=== PATIENT | male | born 1990 | race Caucasian/White ===

== ENCOUNTER 2017-05-25 10:53 | Emergency (ER) | payer MEDICAID ==
[2017-05-25] MEDS: MORPHINE SULFATE 4 MG/ML DISP.SYRIN. IM ×2 (14:24)
[2017-05-25] MEDS: CLINDAMYCIN HCL 150 MG CAPSULE. PO ×2 (14:24)
[2017-05-25 14:37] LABS: ADD MAN DIFF? NO
[2017-05-25 14:40] LABS: BASO % 1 % (0-3); EOS # 0.1 x10^3/uL (0.0-0.7); EOS % 2 % (0-3); HEMOGLOBIN 12.8 g/dL (13.0-17.5); LYMPH # 1.5 x10^3/uL (1.0-4.8); LYMPH % 32 % (24-48); MEAN CORPUSCULAR HEMOGLOBIN 33 pg (25-35); MEAN CORPUSCULAR HGB CONC 35 g/dL (31-37); MEAN CORPUSCULAR VOLUME 96 fL (79-100); MONO # 0.7 x10^3/uL (0.0-1.1); MONO % 14 % (0-9); NEUT # 2.4 x10^3uL (1.8-7.7); NEUT % 51 % (31-73); PLATELET COUNT 205 x10^3/uL (140-400); RED BLOOD COUNT 3.86 x10^6/uL (4.30-5.70); RED CELL DISTRIBUTION WIDTH 15.2 % (11.5-14.5); WHITE BLOOD COUNT 4.7 x10^3/uL (4.0-11.0)
[2017-05-25 14:58] LABS: ANION GAP 12 (6-14); BLOOD UREA NITROGEN 9 mg/dL (8-26); BUN/CREATININE RATIO 13 (6-20); CALCIUM 9.5 mg/dL (8.5-10.1); CARBON DIOXIDE 27 mmol/L (21-32); CHLORIDE 97 mmol/L (98-107); CREATININE 0.7 mg/dL (0.7-1.3); GFR 134.3; GLUCOSE 95 mg/dL (70-99); SODIUM 136 mmol/L (136-145)
[2017-05-25 15:03] LABS: ALBUMIN 3.4 g/dL (3.4-5.0); ALBUMIN/GLOBULIN RATIO 0.6 (1.0-1.7); ALK PHOS 241 U/L (46-116); ALT (SGPT) 85 U/L (16-63); AST (SGOT) 87 U/L (15-37); TOTAL BILIRUBIN 0.7 mg/dL (0.2-1.0); TOTAL PROTEIN 9.4 g/dL (6.4-8.2)
== END 2017-05-25 15:17 | disposition home or self-care (01) ==
LOC: ER 10:53
DX: T81.4XXA Infection following a procedure, initial encounter (principal); Z90.49 Acquired absence of other specified parts of digestive tract; F12.10 Cannabis abuse, uncomplicated
CPT/HCPCS: 36415; 80053; 85025; 87040; 87070; 87205; 96372; 99284-25; J2270